=== PATIENT | male | born 1995 | race Caucasian/White ===

== ENCOUNTER 2024-02-11 09:26 | Emergency (ER) | payer MEDICAID ==
[~2024-02-11] VITALS: Ht 182.9 cm; Wt 150.0 kg
[2024-02-11 09:36] VITALS: BP 170/100; O2SAT 100
[2024-02-11 10:23] LABS: HEMATOCRIT 46.9 % (42.0-52.0); MEAN CORPUSCULAR HEMOGLOBIN 31.4 pg (28.0-32.0); MEAN CORPUSCULAR HGB CONC 34.1 g/dL (31.0-37.0); PLATELET 206 x1000/uL (130-400); RED BLOOD CELL COUNT 5.09 mill/uL (4.7-6.1); RED CELL DISTRIBUTION WIDTH 14.4 % (11.6-14.6); WHITE BLOOD COUNT 6.2 x1000/uL (4.5-11.0)
[2024-02-11 10:24] LABS: CHLORIDE 104 mEq/L (98-107); SODIUM 139 mEq/L (136-145)
[2024-02-11 10:25] LABS: CALCIUM 9.6 mg/dL (8.7-10.4); CARBON DIOXIDE 30 mEq/L (21-32)
[2024-02-11 10:30] LABS: CREATININE 0.8 mg/dL (0.6-1.3); GLUCOSE 96 mg/dL (70-105); UREA NITROGEN BLOOD 6 mg/dL (9-23)
[2024-02-11 10:32] LABS: ALANINE AMINOTRANSFERASE 263 IU/L (10-49); ALBUMIN 4.4 g/dL (3.2-4.8); ASPARTATE AMINOTRANSFERASE 144 IU/L (<34); PROTEIN TOTAL 7.2 g/dL (6.0-8.3)
[2024-02-11] MEDS: IOHEXOL-300 100 ML BOTTLE ONE (12:14)
[2024-02-11 13:30] VITALS: PULSE 87; RESP 16; TEMP 36.89184; O2SAT 100
== END 2024-02-11 13:40 | disposition home or self-care (01) ==
LOC: ER 09:26
DX: R51.9 Headache, unspecified (principal); V49.9XXA Car occupant (driver) (passenger) injured in unspecified traffic accident, initial encounter; Y93.89 Activity, other specified; Y92.89 Other specified places as the place of occurrence of the external cause; Y99.8 Other external cause status
CPT/HCPCS: 99291; 70450; 80053; 85027; 85610; 36415; 71260; 74177; Q9967